=== PATIENT | male | born 1955 | race Caucasian/White ===

== ENCOUNTER → 2019-01-14 | Outpatient (CLI) | payer OTHER ==
[~2019-01-14] MED LIST: IOPAMIDOL 370 MG/ML 200 ML INFUS..BTL INJ ONE; SODIUM CHLORIDE 0.9% 50ML 50 ML ONE
[2019-01-14 11:25] LABS: BLOOD UREA NITROGEN 27 mg/dL (7-26); BUN/CREATININE RATIO 24 (6-25); CREATININE, SERUM 1.12 mg/dL (0.72-1.25); EST GLOMERULAR FILTRATION RATE > 60 ML/MIN (60-)
--- NOTE | 2019-01-14 13:14 | Diagnostic Imaging Report ---
EXAM: CT Chest WITH intravenous contrast 01/14/2019 10:47 AM INDICATION: Productive cough COMPARISON: Chest radiograph of 01/13/2019 TECHNIQUE: Chest was scanned utilizing a multidetector helical scanner from the lung apex through the level of the adrenal glands after administration of IV contrast. Coronal and sagittal reformations were obtained. Routine protocol was performed. IV CONTRAST: 100mL Isovue 370 RADIATION DOSE: Total DLP: 551.5 mGy*cm. Dose modulation, iterative reconstruction, and/or weight based adjustment of the mA/kV was utilized to reduce the radiation dose to as low as reasonably achievable. COMPLICATIONS: None FINDINGS: LINES/ TUBES: None. LUNGS AND AIRWAYS: The central airways are patent. There is bibasilar dependent subsegmental atelectasis. No focal consolidation. 5 mm nodular opacity along the right minor fissure likely represents a small fissural lymph node. No significant bronchial wall thickening. PLEURA: The pleural spaces are clear. HEART AND MEDIASTINUM: The thyroid gland is normal. No mediastinal, hilar or axillary lymphadenopathy. The heart is normal in size.. There is no pericardial effusion. UPPER ABDOMEN: Limited views of the upper abdomen demonstrate a calcified granuloma in the right liver and 2 subcentimeter anterior right hepatic hypodensities which are too small to adequately characterize but likely represent cysts. The partially visualized gallbladder, spleen, superior aspects of the kidneys, pancreas, and the adrenal glands appear unremarkable. BONES: No acute osseous injury. Mild degenerative changes of the visualized spine. No suspicious lytic or blastic lesions. SOFT TISSUES: Unremarkable. IMPRESSION: No focal pneumonia or pulmonary edema. No significant bronchial wall thickening. Signed by: Omar Coelho MD on 01/14/2019 1:10 PM
== END ==
LOC: CT 10:39
PROVIDERS: ATTEND Family Medicine
DX: J41.8 Mixed simple and mucopurulent chronic bronchitis (principal)
CPT/HCPCS: 36415; 71260; 82565; 84520; Q9967

== ENCOUNTER → 2019-10-24 | Day surgery (SDC) | payer OTHER ==
[~2019-10-24] MED LIST changes: +ATENOLOL50 MG PO; +DEXTROSE 5% 250ML 250 ML IV ONE; +DOXAZOSIN MESYLA2 MG PO; +FARXIGA10 MG PO; +GEMFIBROZIL600 MG PO; +GLIMEPIRIDE2 MG PO; +GLYCOPYRROLATE INJ 0.2 MG/ML VIAL ONE; -IOPAMIDOL 370 MG/ML 200 ML INFUS..BTL INJ ONE; +LIDOCAINE HCL 2% LOCAL INJ 5 ML SDV VIAL INJ ONE; +LISINOPRIL-HCT1 EACH PO; +PIOGLITAZONE HC45 MG PO; +PROPOFOL IV EMULSION 10 MG/ML 20 ML VIAL ONE; +SIMETHICONE 40 MG/0.6 ML BTL ONE; -SODIUM CHLORIDE 0.9% 50ML 50 ML ONE
[2019-10-24 08:58] VITALS: BP 143/66
--- NOTE | 2019-10-24 11:09 | Operative Report ---
DATE OF PROCEDURE: 10/24/2019 SURGEON: Iker Kenney MD PROCEDURE: EGD. INDICATIONS FOR EGD: History of gastric ulcer with heaped up margins. EGD is being carried out to re-evaluate ulcer and document healing. MEDICATIONS: The patient was done under MAC, please see anesthesiologist's note. PROCEDURE IN DETAIL: With the patient in left lateral decubitus position, a flexible fiberoptic Olympus gastroscope was introduced into the esophagus under direct visualization without any difficulty. There were some patchy erythema noted in the distal esophagus. The scope was then advanced with ease into the stomach and the mucosa overlying the antrum and the body revealed some patchy erythema. The previously described gastric ulcer in the antrum appeared to be well healed. Pylorus was intubated with ease and the scope was advanced all the way to the second portion of the duodenum. The scope was then withdrawn slowly and the mucosa overlying the proximal second portion and the duodenal bulb appeared to be within normal limits. The scope was then withdrawn back into the stomach and retroflexed, and mucosa overlying the fundus and the cardia appeared to be within normal limits. The scope was then straightened out, it was subsequently withdrawn. The patient tolerated the procedure well. IMPRESSION: 1. Distal esophagitis, mild. 2. Gastritis, mild. 3. Gastric ulcer previously described, well healed. PLAN: Continue Protonix 40 mg one p.o. q.a.m. before meals. Iker Kenney MD [facility] [place]/[facility] /[id number] cc: Ricci Felipe MD
== END | disposition home or self-care (01) ==
LOC: OR 05:55
PROVIDERS: ATTEND Internal Medicine Gastroenterology
DX: K25.9 Gastric ulcer, unspecified as acute or chronic, without hemorrhage or perforation (principal); K29.70 Gastritis, unspecified, without bleeding; K20.9 Esophagitis, unspecified; Z86.010 Personal history of colon polyps; I10 Essential (primary) hypertension; E11.9 Type 2 diabetes mellitus without complications; R00.1 Bradycardia, unspecified; E78.5 Hyperlipidemia, unspecified; Z01.810 Encounter for preprocedural cardiovascular examination; Z01.812 Encounter for preprocedural laboratory examination; Z11.59 Encounter for screening for other viral diseases; Z79.84 Long term (current) use of oral hypoglycemic drugs; Z68.29 Body mass index [BMI] 29.0-29.9, adult; Z87.891 Personal history of nicotine dependence
CPT/HCPCS: 36415; 43235; 82948; 87635; 93005; J2001; J2704; J7070; 43239

== ENCOUNTER 2022-06-18 20:40 | Observation (INO) | payer MEDICARE, OTHER ==
[~2022-06-18] VITALS: Ht 172.7 cm; Wt 81.6 kg
[2022-06-18 04:00] VITALS: BP 146/67
[~2022-06-18 20:40] MED LIST changes: -DEXTROSE 5% 250ML 250 ML IV ONE; -GLYCOPYRROLATE INJ 0.2 MG/ML VIAL ONE; -LIDOCAINE HCL 2% LOCAL INJ 5 ML SDV VIAL INJ ONE; -PROPOFOL IV EMULSION 10 MG/ML 20 ML VIAL ONE; -SIMETHICONE 40 MG/0.6 ML BTL ONE
[2022-06-18] MEDS ORDERED: ALBUTEROL/IPRATROPIUM 3 ML NEB NEB ONE (21:00)
[2022-06-18] MEDS ORDERED: ALBUTEROL/IPRATROPIUM 3 ML NEB ONE (21:02)
[2022-06-18] MEDS ORDERED: SODIUM CHLORIDE 0.9% 1000ML 1,000 ML STA (21:02)
[2022-06-18] MEDS ORDERED: METHYLPREDNISOLONE SOD SUCC 125 MG/2ML VIAL IV ONE (21:15)
[2022-06-18] MEDS ORDERED: LEVOFLOXACIN 750MG/D5W 150ML IV ONE (21:15)
[2022-06-18] MEDS ORDERED: METHYLPREDNISOLONE SOD SUCC 125 MG/2ML VIAL ONE (21:17)
[2022-06-18] MEDS ORDERED: SODIUM CHLORIDE 0.9% 1000ML 1,000 ML ONE (21:17)
[2022-06-18] MEDS ORDERED: LEVOFLOXACIN 750MG/D5W 150ML 150 ML IV ONE (21:17)
[2022-06-18] MEDS ORDERED: SODIUM CHLORIDE FLUSH 10 ML SYR INJ PRN (22:00)
[2022-06-18] MEDS ORDERED: VENTOLIN HFA18 GM INH (22:00)
[2022-06-18] MEDS ORDERED: ONDANSETRON HCL INJ 2MG/ML 2ML 2 MG/ML VIAL IV PRN (22:00)
[2022-06-18] MEDS ORDERED: BREO ELLIPTA 21 EACH INH (22:00)
[2022-06-18 23:30] VITALS: BP_SYST 131; BP_SYST 136; BP_DIAS 63; BP_DIAS 77
[2022-06-18 23:50] VITALS: BP 136/63
[2022-06-19 07:11] LABS: BASOPHILS % 0.6 % (0.0-1.0); EOSINOPHILS % 0.2 % (0.0-6.0); HEMATOCRIT 40.6 % (38.2-49.6); LYMPHOCYTES # (AUTO) 0.2 (1.0-3.2); LYMPHOCYTES % 4.6 % (18.0-39.1); MEAN CORPUSCULAR HEMOGLOBIN 30.6 pg (28-32); MEAN CORPUSCULAR HGB CONC 29.6 g/dL (31-35); MEAN CORPUSCULAR VOLUME 103.6 fL (81-99); MONOCYTES % 0.8 % (4.4-11.3); NEUTROPHILS # (AUTO) 4.5 (2.1-6.9); NEUTROPHILS % 93.2 % (38.7-80.0); PLATELET COUNT 173 x10e3/uL (140-360); RED BLOOD COUNT 3.92 x10e6/uL (4.3-5.7); RED CELL DISTRIBUTION WIDTH 14.6 % (11.7-14.4)
[2022-06-19 07:19] LABS: ANION GAP 16.4 mmol/L (8-16); CALCIUM 8.8 mg/dL (8.4-10.2); CREATININE, SERUM 1.93 mg/dL (0.72-1.25); POTASSIUM 5.4 mmol/L (3.5-5.1)
[2022-06-19 08:22] VITALS: BP 151/60
[2022-06-19 08:30] VITALS: BP 151/60
[2022-06-19] MEDS ORDERED: GUAIFENESIN 600 MG TAB PO ONE (10:00)
[2022-06-19] MEDS ORDERED: TRIAMCINOLONE ACET 40 MG/ML VIAL IM ONE (10:00)
[2022-06-19] MEDS: INSULIN GLARGINE 100 UNITS/ML VIAL SQ ONE ×2 (10:07→10:15)
[2022-06-19] MEDS ORDERED: MUCINEX600 MG PO (10:34)
[2022-06-19] MEDS ORDERED: NIFEDIPINE10 MG PO (10:36)
[2022-06-19] MEDS ORDERED: BENZONATATE PO (10:36)
[2022-06-19] MEDS ORDERED: AZITHROMYCIN250 MG PO (10:37)
[2022-07-21] MEDS ORDERED: DEXAMETHASONE6 MG PO (16:33)
[2022-07-21] MEDS ORDERED: AZITHROMYCIN250 MG PO (16:34)
== END 2022-06-19 11:47 | disposition home or self-care (01) ==
LOC: FSED 20:54 → ERHOLD 22:00 → MED/SURG2 23:56
PROVIDERS: ADMIT Internal Medicine; ATTEND Internal Medicine
DX: J44.1 Chronic obstructive pulmonary disease with (acute) exacerbation (principal); R09.02 Hypoxemia; I10 Essential (primary) hypertension; E11.9 Type 2 diabetes mellitus without complications; Z20.822 Contact with and (suspected) exposure to COVID-19; Z79.84 Long term (current) use of oral hypoglycemic drugs; Z79.899 Other long term (current) drug therapy
CPT/HCPCS: 36415; 71045 ×2; 80048; 80053; 82948; 83605 ×2; 85025 ×2; 87400; 94799; 99284; G0378 ×2; J1815; J2930; J3301; J7030; U0002

== ENCOUNTER 2022-07-16 19:25 | Inpatient (IN) | payer MEDICARE ==
[~2022-07-16] VITALS: Ht 172.7 cm; Wt 81.6 kg
[~2022-07-16 19:25] MED LIST changes: +AZITHROMYCIN250 MG PO; +BENZONATATE PO; +BREO ELLIPTA 21 EACH INH; +MUCINEX600 MG PO; +NIFEDIPINE10 MG PO; +VENTOLIN HFA18 GM INH
[2022-07-16] MEDS ORDERED: METHYLPREDNISOLONE SOD SUCC 125 MG/2ML VIAL IV STA (19:36)
[2022-07-16] MEDS ORDERED: ALBUTEROL/IPRATROPIUM 3 ML NEB NEB STA (19:36)
[2022-07-16] MEDS: METHYLPREDNISOLONE SOD SUCC 40 MG/ML VIAL 1ML IV SCH ×2 (20:15→20:40)
[2022-07-16 20:48] LABS: BASOPHILS # (AUTO) 0.1 (0.0-0.1); BASOPHILS % 1.1 % (0.0-1.0); EOSINOPHILS # (AUTO) 0.7 (0.0-0.4); EOSINOPHILS % 12.6 % (0.0-6.0); HEMATOCRIT 41.4 % (38.2-49.6); HEMOGLOBIN 12.7 g/dL (14.0-18.0); LYMPHOCYTES # (AUTO) 0.9 (1.0-3.2); LYMPHOCYTES % 17.4 % (18.0-39.1); MEAN CORPUSCULAR HEMOGLOBIN 31.4 pg (28-32); MEAN CORPUSCULAR HGB CONC 30.7 g/dL (31-35); MEAN CORPUSCULAR VOLUME 102.5 fL (81-99); MONOCYTES # (AUTO) 0.6 (0.2-0.8); MONOCYTES % 10.2 % (4.4-11.3); NEUTROPHILS # (AUTO) 3.2 (2.1-6.9); NEUTROPHILS % 58.5 % (38.7-80.0); PLATELET COUNT 204 x10e3/uL (140-360); RED BLOOD COUNT 4.04 x10e6/uL (4.3-5.7); RED CELL DISTRIBUTION WIDTH 13.5 % (11.7-14.4)
[2022-07-16 21:10] LABS: AMPHETAMINES SCREEN,URINE NEGATIVE (NEGATIVE); BENZODIAZEPINES SCREEN,URINE NEGATIVE (NEGATIVE); PHENCYCLIDINE SCREEN,URINE NEGATIVE (NEGATIVE)
[2022-07-16 21:12] LABS: ALBUMIN 3.8 g/dL (3.5-5.0); ALBUMIN/GLOBULIN RATIO 1.2 (0.8-2.0); ANION GAP 15.9 mmol/L (8-16); CALCIUM 8.9 mg/dL (8.4-10.2); CREATININE, SERUM 1.29 mg/dL (0.72-1.25); POTASSIUM 3.9 mmol/L (3.5-5.1)
[2022-07-16 21:19] LABS: CREATINE KINASE MB 3.7 ng/mL (0-5.0)
[2022-07-17] VITALS (8 sets, daily range): BP systolic 100–146; BP diastolic 53–69
[2022-07-17] MEDS: METHYLPREDNISOLONE SOD SUCC 40 MG/ML VIAL 1ML IV SCH (02:00)
[2022-07-17] MEDS ORDERED: LISINOPRIL-HCT1 EACH PO (04:45)
[2022-07-17] MEDS ORDERED: COMBIVENT RESPIM4 GM IH (04:50)
[2022-07-17 06:25] LABS: BASOPHILS % 0.7 % (0.0-1.0); EOSINOPHILS % 0.2 % (0.0-6.0); HEMATOCRIT 44.6 % (38.2-49.6); HEMOGLOBIN 13.6 g/dL (14.0-18.0); LYMPHOCYTES # (AUTO) 0.3 (1.0-3.2); LYMPHOCYTES % 6.4 % (18.0-39.1); MEAN CORPUSCULAR HEMOGLOBIN 32.1 pg (28-32); MEAN CORPUSCULAR HGB CONC 30.5 g/dL (31-35); MEAN CORPUSCULAR VOLUME 105.2 fL (81-99); MONOCYTES % 0.5 % (4.4-11.3); NEUTROPHILS # (AUTO) 3.9 (2.1-6.9); NEUTROPHILS % 91.7 % (38.7-80.0); PLATELET COUNT 195 x10e3/uL (140-360); RED BLOOD COUNT 4.24 x10e6/uL (4.3-5.7)
[2022-07-17 06:55] LABS: ALBUMIN 3.7 g/dL (3.5-5.0); ALBUMIN/GLOBULIN RATIO 1.1 (0.8-2.0); ANION GAP 16.7 mmol/L (8-16); CALCIUM 8.9 mg/dL (8.4-10.2); CREATININE, SERUM 1.13 mg/dL (0.72-1.25); POTASSIUM 4.7 mmol/L (3.5-5.1)
[2022-07-17 07:28] LABS: CREATINE KINASE MB 2.9 ng/mL (0-5.0)
[2022-07-17] MEDS ORDERED: IPRATROPIUM/ALBUTEROL SULFATE 4 GM INH INH PRN (09:00)
[2022-07-17] MEDS ORDERED: GLIMEPIRIDE 2 MG TAB PO SCH (09:00)
[2022-07-17] MEDS ORDERED: DEXTROSE 50% SYRINGE 50 ML IV PRN (09:00)
[2022-07-17] MEDS ORDERED: REMDESIVIR 200MG 200 MG in SODIUM CHLORIDE 0.9% 100 ML IV ONE (09:15)
[2022-07-17] MEDS ORDERED: ALBUTEROL/IPRATROPIUM 3 ML NEB INH PRN (09:15)
[2022-07-17] MEDS ORDERED: ALBUTEROL SULFATE HFA 8GM INHALATION AEROSOL INH PRN (09:15)
[2022-07-17] MEDS: ATENOLOL 50 MG TAB PO SCH (09:24)
[2022-07-17] MEDS ORDERED: SODIUM CHLORIDE 0.9% 250ML 250 ML ONE (09:33)
[2022-07-17] MEDS ORDERED: REMDESIVIR 100MG 200 MG in SODIUM CHLORIDE 0.9% 100 ML IV ONE (10:00)
[2022-07-17] MEDS: DEXAMETHASONE SOD PHOS 10 MG/1 ML VIAL IV SCH (10:00)
[2022-07-17] MEDS ORDERED: ACETAMINOPHEN 325 MG TAB PO PRN (11:45)
[2022-07-17] MEDS ORDERED: ONDANSETRON HCL INJ 2MG/ML 2ML 2 MG/ML VIAL IV PRN (11:45)
[2022-07-17] MEDS: PIOGLITAZONE HCL 15 MG TAB PO SCH (12:00)
[2022-07-17] MEDS: GUAIFENESIN 600 MG TAB PO SCH ×2 (12:00→16:35)
[2022-07-17] MEDS: INSULIN REGULAR, HUMAN 100 UNIT/1 ML SQ SCH ×3 (12:01→21:05)
[2022-07-17 15:45] LABS: CREATINE KINASE MB 2.5 ng/mL (0-5.0)
[2022-07-17] MEDS: GEMFIBROZIL 600 MG TAB PO SCH (16:34)
[2022-07-17] MEDS: ENOXAPARIN SOD INJ 40 MG/0.4 ML SYR SC SCH (16:35)
[2022-07-17] MEDS: DOXAZOSIN MESYLATE 2 MG TAB PO SCH (20:08)
[2022-07-18] VITALS (8 sets, daily range): BP systolic 117–153; BP diastolic 51–70
[2022-07-18] MEDS: GEMFIBROZIL 600 MG TAB PO SCH ×2 (08:53→16:22)
[2022-07-18] MEDS: ATENOLOL 50 MG TAB PO SCH (08:53)
[2022-07-18] MEDS: GLIMEPIRIDE 2 MG TAB PO SCH (08:53)
[2022-07-18] MEDS: GUAIFENESIN 600 MG TAB PO SCH ×2 (08:53→16:22)
[2022-07-18] MEDS: PIOGLITAZONE HCL 15 MG TAB PO SCH (08:54)
[2022-07-18] MEDS: DEXAMETHASONE SOD PHOS 10 MG/1 ML VIAL IV SCH (08:54)
[2022-07-18] MEDS: INSULIN REGULAR, HUMAN 100 UNIT/1 ML SQ SCH ×4 (08:55→21:07)
[2022-07-18] MEDS: NON-FORMULARY MEDICATION (Dapagliflozin Propanediol (Farxiga) 10 MG) PO SCH (09:00)
[2022-07-18] MEDS ORDERED: ONDANSETRON HCL 4 MG ORAL DISINTEGRATING TAB PO PRN (11:45)
[2022-07-18] MEDS ORDERED: REMDESIVIR 100MG 100 MG in SODIUM CHLORIDE 0.9% 100 ML IV SCH (14:00)
[2022-07-18] MEDS: ENOXAPARIN SOD INJ 40 MG/0.4 ML SYR SC SCH (16:23)
[2022-07-18] MEDS: DOXAZOSIN MESYLATE 2 MG TAB PO SCH (21:01)
[2022-07-19] VITALS: BP 124/70
[2022-07-19 04:35] VITALS: BP 152/59
[2022-07-19 05:54] LABS: BASOPHILS % 0.5 % (0.0-1.0); EOSINOPHILS # (AUTO) 0.1 (0.0-0.4); EOSINOPHILS % 1.7 % (0.0-6.0); HEMATOCRIT 36.8 % (38.2-49.6); HEMOGLOBIN 12.2 g/dL (14.0-18.0); LYMPHOCYTES # (AUTO) 1.3 (1.0-3.2); LYMPHOCYTES % 22.1 % (18.0-39.1); MEAN CORPUSCULAR HEMOGLOBIN 31.4 pg (28-32); MEAN CORPUSCULAR HGB CONC 33.2 g/dL (31-35); MEAN CORPUSCULAR VOLUME 94.6 fL (81-99); MONOCYTES # (AUTO) 0.7 (0.2-0.8); MONOCYTES % 10.9 % (4.4-11.3); NEUTROPHILS # (AUTO) 3.9 (2.1-6.9); NEUTROPHILS % 64.5 % (38.7-80.0); PLATELET COUNT 180 x10e3/uL (140-360); RED BLOOD COUNT 3.89 x10e6/uL (4.3-5.7); RED CELL DISTRIBUTION WIDTH 14.3 % (11.7-14.4)
[2022-07-19 06:19] LABS: ANION GAP 11.5 mmol/L (8-16); CREATININE, SERUM 0.97 mg/dL (0.72-1.25); POTASSIUM 3.5 mmol/L (3.5-5.1)
[2022-07-19] MEDS: INSULIN REGULAR, HUMAN 100 UNIT/1 ML SQ SCH (07:30)
[2022-07-19 08:36] VITALS: BP 130/100
[2022-07-19] MEDS: NON-FORMULARY MEDICATION (Dapagliflozin Propanediol (Farxiga) 10 MG) PO SCH (09:00)
[2022-07-19] MEDS ORDERED: AZITHROMYCIN 250 MG TAB PO SCH (09:15)
[2022-07-19] MEDS: ATENOLOL 50 MG TAB PO SCH (09:32)
[2022-07-19] MEDS: GUAIFENESIN 600 MG TAB PO SCH (09:32)
[2022-07-19] MEDS: PIOGLITAZONE HCL 15 MG TAB PO SCH (09:33)
[2022-07-19] MEDS: GLIMEPIRIDE 2 MG TAB PO SCH (09:33)
[2022-07-19] MEDS: GEMFIBROZIL 600 MG TAB PO SCH (09:34)
[2022-07-19] MEDS: DEXAMETHASONE SOD PHOS 10 MG/1 ML VIAL IV SCH (09:34)
[2022-07-19] MEDS ORDERED: DEXAMETHASONE6 MG PO (10:39)
[2022-07-19] MEDS ORDERED: AZITHROMYCIN250 MG PO (10:39)
[2022-07-21] MEDS ORDERED: DEXAMETHASONE6 MG PO (16:33)
[2022-07-21] MEDS ORDERED: AZITHROMYCIN250 MG PO (16:34)
== END 2022-07-19 11:07 | disposition home or self-care (01) | DRG 178 ==
LOC: ER 19:32 → ERHOLD 20:16 → MED/SURG3 22:43
PROVIDERS: ADMIT Internal Medicine; ATTEND Internal Medicine
PROC: XW033E5 Introduction of Remdesivir Anti-infective into Peripheral Vein, Percutaneous Approach, New Technology Group 5 (ICD-10-PCS; principal; 2022-07-17)
DX: U07.1 COVID-19 (principal); E87.20 Acidosis, unspecified; J44.1 Chronic obstructive pulmonary disease with (acute) exacerbation; N17.9 Acute kidney failure, unspecified; E78.00 Pure hypercholesterolemia, unspecified; E11.9 Type 2 diabetes mellitus without complications; I10 Essential (primary) hypertension; R09.02 Hypoxemia
CPT/HCPCS: 36415; 71045; 80048; 80053; 80307; 82550; 82553; 82948; 83880; 84484; 85025; 85379; 93005; 94799; 99285; J0248; J0456; J0696; J1100; J1650; J1817; J2920; J2930; J7050